=== PATIENT | female | born 1980 | race Two or more races ===

== ENCOUNTER 2017-04-06 16:40 | Emergency (ER) | payer OTHER ==
[~2017-04-06] VITALS: Ht 170.2 cm; Wt 77.1 kg
[2017-04-06 16:53] VITALS: BP 121/71
== END 2017-04-06 17:18 | disposition home or self-care (01) ==
LOC: ER 16:41
DX: M54.9 Dorsalgia, unspecified (principal)
CPT/HCPCS: 99283; A4606; Z7610

== ENCOUNTER 2017-08-15 21:05 | Emergency (ER) | payer OTHER ==
[~2017-08-15] VITALS: Ht 167.6 cm; Wt 83.0 kg
--- NOTE | 2017-08-15 21:20 | NUR ---
TO BED 6 A 36 YO FEMALE PATIENT BIBSELF C/O RIGHT FLANK PAIN X 3 DAYS, WORSE TODAY. HX KIDNEY STONES. PATIENT IS AAOX4, AMBULATORY WITH STEADY GAIT, NAD NOTED. VSS. AFEBRILE. NONDIAPHORETIC. COMFORT MEASURES RENDERED.
[2017-08-15] MEDS ORDERED: KETOROLAC TROMETHAMINE INJ 30 MG/ML VIAL IV ONE (21:30)
[2017-08-15] MEDS ORDERED: IV NS 0.9% 1,000 ML BAG IV ONE (21:30)
--- NOTE | 2017-08-15 21:30 | NUR ---
started a saline lock on the rac g20, blood drawn and sent to lab.
[2017-08-15 21:33] LABS: BASOPHILS % (AUTO) 0.5 % (0.0-2.0); EOSINOPHILS # (AUTO) 0.1 /CMM (0.0-0.7); EOSINOPHILS % (AUTO) 0.8 % (0.0-6.0); HEMATOCRIT 37 % (33-45); HEMOGLOBIN 12.4 g/dL (11.5-14.8); LYMPHOCYTES # (AUTO) 2.4 /CMM (0.8-4.8); MEAN CORPUSCULAR HEMOGLOBIN 30 PG (26.0-33.0); MEAN CORPUSCULAR HGB CONC 34 g/dl (31.0-36.0); MEAN CORPUSCULAR VOLUME 89 fL (82-100); MONOCYTES # (AUTO) 0.4 /CMM (0.1-1.30); MONOCYTES % (AUTO) 4.4 % (2.0-12.0); NEUTROPHILS # (AUTO) 5.3 /CMM (1.8-8.9); NEUTROPHILS % (AUTO) 65.3 % (43.0-81.0); PLATELET COUNT (AUTO) 223 /CMM (150-450); RDW COEFFICIENT OF VARIATION 12.3 (11.5-15.0); RED BLOOD CELL COUNT(AUTO) 4.14 MIL/uL (4.0-5.2); WHITE BLOOD COUNT (AUTO) 8.2 K/uL (4.3-11.0)
[2017-08-15] MEDS ORDERED: KETOROLAC TROMETHAMINE INJ 30 MG/ML VIAL ONE (21:33)
[2017-08-15 21:34] LABS: APPEARANCE,URINE Clear (CLEAR); BILIRUBIN,URINE Negative (NEGATIVE); BLOOD, URINE Negative Ery/uL (NEGATIVE); COLOR,URINE Yellow (YELLOW); KETONES,URINE Negative (NEGATIVE); LEUKOCYTE ESTERASE ,URINE Negative (NEGATIVE); NITRITE, URINE Negative (NEGATIVE); PH,URINE 5.5 (5.0-8.0); PROTEIN,URINE Trace mg/dl (NEGATIVE); UGLUCOSE Negative (NEGATIVE); UROBILINOGEN,URINE 0.2 EU/dL (0.2)
[2017-08-15 21:42] LABS: CALCIUM, SERUM 8.5 mg/dL (8.5-10.1); CREATININE 0.6 mg/dL (0.6-1.3); POTASSIUM 3.6 mmol/L (3.5-5.1)
--- NOTE | 2017-08-15 21:43 | NUR ---
medicated patient as ordered by Dr Danielle.
[2017-08-15 21:52] LABS: BACTERIA,URINE Rare /HPF (None Seen); RBC,URINE NONE SEEN /HPF (0-2); SQUAMOUS EPITHELIAL CELL,UR Few /HPF (None Seen); WBC,URINE NONE SEEN /HPF (0-3)
[2017-08-15 21:54] LABS: BILIRUBIN,DIRECT 0.1 mg/dL (0.0-0.2); BILIRUBIN,TOTAL 0.4 mg/dL (0.2-1.0); TOTAL PROTEIN, SERUM 7.8 g/dL (6.4-8.2)
--- NOTE | 2017-08-15 22:37 | NUR ---
back from ct.
--- NOTE | 2017-08-15 22:48 | NUR ---
Dr Araujo at bedside.
--- NOTE | 2017-08-16 00:54 | NUR ---
IV removed. Catheter intact and site benign. Pressure and 4x4 applied to site. No bleeding noted. Patient discharged to home in stable condition. Written and verbal after care instructions given. Patient verbalizes understanding of instruction. Patient is ambulatory with steady gait, Instructed not to drive. no further complaints.
[2017-08-16 00:55] VITALS: BP 128/74
== END 2017-08-16 00:55 | disposition home or self-care (01) ==
LOC: ER 21:07
DX: N20.0 Calculus of kidney (principal)
CPT/HCPCS: 36415; 80048-TC; 80076-TC; 81000-TC; 83690-TC; 84703-TC; 85025-TC; A4606; J1885; J7030; Z7610

== ENCOUNTER 2018-05-18 21:17 | Emergency (ER) | payer OTHER ==
[~2018-05-18] VITALS: Ht 172.7 cm; Wt 83.9 kg
[2018-05-18 21:20] VITALS: BP 141/89
[2018-05-18] MEDS ORDERED: KETOROLAC TROMETHAMINE INJ 30 MG/ML VIAL ONE (22:21)
[2018-05-18] MEDS ORDERED: ONDANSETRON 4 MG TAB.RAPDIS ONE (22:22)
[2018-05-18] MEDS ORDERED: oxyCODONE/APAP (5/325 MG) 1 UDTAB TABLET ONE (22:22)
[2018-05-18] MEDS ORDERED: ONDANSETRON 4 MG TAB.RAPDIS SL ONE (22:30)
[2018-05-18] MEDS ORDERED: oxyCODONE/APAP (5/325 MG) 1 UDTAB TABLET PO ONE (22:30)
[2018-05-18] MEDS ORDERED: KETOROLAC TROMETHAMINE INJ 60 MG/2 ML VIAL IM ONE (22:30)
== END 2018-05-18 22:30 | disposition home or self-care (01) ==
LOC: ER 21:17
DX: G89.29 Other chronic pain (principal); M54.5 Low back pain; M54.6 Pain in thoracic spine; M54.2 Cervicalgia; Z60.2 Problems related to living alone
CPT/HCPCS: A4606; J1885; Q0162; Z7610

== ENCOUNTER 2021-05-02 11:07 | Emergency (ER) | payer OTHER ==
[~2021-05-02] VITALS: Ht 170.2 cm; Wt 79.4 kg
--- NOTE | 2021-05-02 11:45 | NUR ---
BIBS FROM HOME WITH COMPLAINTS OF BACK SPASMS AND RIGHT/LEFT LEG PAIN X 3 DAYS. PAIN SCALE OF 10/10. A/O X4. STABLE ON ROOM AIR. NO SOB.
--- NOTE | 2021-05-02 11:50 | NUR ---
AT BEDSIDE FOR EVAL
[2021-05-02] MEDS ORDERED: CYCLOBENZAPRINE 10 MG TABLET PO ONE (12:00)
[2021-05-02] MEDS ORDERED: LIDOCAINE 5% (PATCH) 1 EA PATCH TP SCH (12:00)
[2021-05-02] MEDS ORDERED: KETOROLAC TROMETHAMINE INJ 30 MG/ML VIAL IM ONE (12:00)
[2021-05-02] MEDS ORDERED: KETOROLAC TROMETHAMINE 15 MG/ML VIAL ONE (12:06)
[2021-05-02] MEDS ORDERED: CYCLOBENZAPRINE 10 MG TABLET ONE (12:06)
[2021-05-02] MEDS ORDERED: IBUP-1957 PO (12:52)
[2021-05-02] MEDS ORDERED: CYCL5TAB PO (12:52)
--- NOTE | 2021-05-02 13:01 | NUR ---
DISCHARGED PT HOME IN STABLE CONDITION. AMBULATORY. A/O X4. NO SOB OR ANY DISTRESS. PRESCRIPTION AND DISCHARGE INSTRUCTIONS GIVEN TO PT, VERBALIZED UNDERSTANDING.
[2021-05-02 13:03] VITALS: BP 126/91
== END 2021-05-02 13:05 | disposition home or self-care (01) ==
LOC: ER 11:10
DX: M54.42 Lumbago with sciatica, left side (principal); Z60.2 Problems related to living alone; Z79.899 Other long term (current) drug therapy
CPT/HCPCS: 96372; 99283; J1885

== ENCOUNTER 2023-01-17 19:28 | Emergency (ER) | payer OTHER ==
[~2023-01-17] VITALS: Ht 170.2 cm; Wt 74.4 kg
[~2023-01-17 19:28] MED LIST: CYCL5TAB PO; IBUP-1957 PO
--- NOTE | 2023-01-17 20:20 | NUR ---
BIBSELF FROM HOME C/O GEN BODY ACHE +N/V X3 DAYS FEBRILE UPON TRIAGE 103.2 PATIENT IS AAOX4. ABLE TO MAKE NEEDS KNOWN.L PLACED COMFORTABLY IN BED.VITALS CHECKED.
--- NOTE | 2023-01-17 20:22 | NUR ---
URINE COLLECTED AND SENT TO LAB
[2023-01-17] MEDS ORDERED: CEFTRIAXONE 1 G in IV D5W 50 ML IV SCH (20:30)
[2023-01-17] MEDS ORDERED: KETOROLAC TROMETHAMINE INJ 30 MG/ML VIAL IV ONE (20:30)
[2023-01-17] MEDS ORDERED: IV NS 0.9% 1,000 ML BAG IV ONE (20:30)
[2023-01-17] MEDS ORDERED: ONDANSETRON HCL/PF 4 MG/2 ML VIAL IVP ONE (20:30)
[2023-01-17 20:46] LABS: BASOPHILS % (AUTO) 0.1 % (0.0-2.0); HEMATOCRIT 32 % (33-45); HEMOGLOBIN 10.7 g/dL (11.5-14.8); LYMPHOCYTES # (AUTO) 0.3 K/uL (0.8-4.8); LYMPHOCYTES % (AUTO) 3.3 % (20.0-44.0); MEAN CORPUSCULAR HGB CONC 33 g/dl (31.0-36.0); MEAN CORPUSCULAR VOLUME 88 fL (82-100); MONOCYTES # (AUTO) 0.7 K/uL (0.1-1.30); MONOCYTES % (AUTO) 7.5 % (2.0-12.0); NEUTROPHILS # (AUTO) 7.8 K/uL (1.8-8.9); NEUTROPHILS % (AUTO) 89.1 % (43.0-81.0); PLATELET COUNT (AUTO) 161 K/uL (150-450); RED BLOOD CELL COUNT(AUTO) 3.62 MIL/uL (4.0-5.2); WHITE BLOOD COUNT (AUTO) 8.7 K/uL (4.3-11.0)
[2023-01-17 20:53] LABS: BILIRUBIN,URINE NEGATIVE (NEGATIVE); COLOR,URINE YELLOW (YELLOW); LEUKOCYTE ESTERASE ,URINE 2+ (NEGATIVE); NITRITE, URINE POSITIVE (NEGATIVE); PROTEIN,URINE 2+ mg/dl (NEGATIVE); UGLUCOSE NEGATIVE (NEGATIVE); UROBILINOGEN,URINE 0.2 EU/dL (0.2)
[2023-01-17 21:01] LABS: RBC,URINE 21-50 /HPF (0-2); WBC,URINE 21-50 /HPF (0-3)
[2023-01-17 21:02] LABS: BACTERIA,URINE 2+ /HPF (None Seen)
[2023-01-17] MEDS ORDERED: ONDANSETRON HCL/PF 4 MG/2 ML VIAL ONE (21:07)
[2023-01-17] MEDS ORDERED: CEFTRIAXONE 1GM BAG (ER ONLY) 50 ML IV ONE (21:07)
[2023-01-17] MEDS ORDERED: KETOROLAC TROMETHAMINE INJ 30 MG/ML VIAL ONE (21:08)
--- NOTE | 2023-01-17 21:11 | NUR ---
pt taken to CT VIA sruthi
--- NOTE | 2023-01-17 21:15 | NUR ---
COVID AND INFLUENZA SWAB DONE AND SENT TO LAB
--- NOTE | 2023-01-17 21:16 | NUR ---
BROUGHT TO CT DEPT
[2023-01-17 21:29] LABS: CALCIUM, SERUM 9.1 mg/dL (8.5-10.1); CREATININE 0.9 mg/dL (0.6-1.3); POTASSIUM 3.4 mmol/L (3.5-5.1)
--- NOTE | 2023-01-17 21:55 | NUR ---
Lisa olivier in ED - 01/17/23 at 2317 by BERNARDINO ROSE MARIE MONTES [phone]. PLS GIVE UPDATE EVERY SHIFT
[2023-01-17] MEDS ORDERED: NAPR500T6 PO (21:59)
[2023-01-17] MEDS ORDERED: CIPR-262 PO (21:59)
[2023-01-17] MEDS ORDERED: ACETAMINOPHEN 650 MG/20.3 ML UDC PO ONE (22:00)
[2023-01-17] MEDS ORDERED: ACETAMINOPHEN 325 MG TABLET ONE (22:02)
--- NOTE | 2023-01-17 23:44 | NUR ---
Patient discharged to home in stable condition. Written and verbal after care instructions given. Patient verbalizes understanding of instruction. IV removed. Catheter intact and site benign. Pressure and 4x4 applied to site. No bleeding noted. PT ambulatory with a steady gait
--- NOTE | 2023-01-17 23:57 | NUR ---
IV CANNULA REMOVED
[2023-01-17 23:58] VITALS: BP 127/70
--- NOTE | 2023-01-17 23:58 | NUR ---
Patient discharged to home in stable condition. Written and verbal after care instructions given. Patient verbalizes understanding of instruction.
[2023-01-18 00:15] LABS: ALBUMIN 3.3 g/dL (3.4-5.0); BILIRUBIN,DIRECT 0.2 mg/dL (0.0-0.2); BILIRUBIN,TOTAL 0.4 mg/dL (0.2-1.0)
== END 2023-01-17 23:59 | disposition home or self-care (01) ==
LOC: ER 19:29
DX: N12 Tubulo-interstitial nephritis, not specified as acute or chronic (principal); N20.0 Calculus of kidney; Z98.890 Other specified postprocedural states; Z79.899 Other long term (current) drug therapy; Z20.822 Contact with and (suspected) exposure to COVID-19
CPT/HCPCS: 99285; 74176; 96365; 96375; 87426; 87804 ×2; 85025; 80048; 87086; 83690; 80076; 84703; 81001; 36415; J0696 ×2; J1885; J2405; J7060; J7030; C9803

== ENCOUNTER 2023-05-07 23:39 | Emergency (ER) | payer OTHER ==
[~2023-05-07] VITALS: Ht 167.6 cm; Wt 72.6 kg
[~2023-05-07 23:39] MED LIST changes: +CIPR-262 PO; +NAPR500T6 PO
[2023-05-07] MEDS ORDERED: ONDANSETRON HCL/PF 4 MG/2 ML VIAL ONE (23:59)
[2023-05-07] MEDS ORDERED: MORPHINE SULFATE INJ 2 MG/ML DISP.SYRIN ONE (23:59)
[2023-05-08] MEDS ORDERED: ONDANSETRON HCL/PF 4 MG/2 ML VIAL IVP ONE
[2023-05-08] MEDS ORDERED: IV NS 0.9% 1,000 ML BAG IV ONE
[2023-05-08] MEDS ORDERED: MORPHINE SULFATE INJ 2 MG/ML DISP.SYRIN IV ONE
--- NOTE | 2023-05-08 | NUR ---
BIBSELF C/O SOB +N/+V . PATIENT IS AOX4. ABLE TO MAKE NEEDS KNOWN. VOMITED AT ER. PLACED COMFORTABLY IN BED. VITALS CHECKED.
--- NOTE | 2023-05-08 00:09 | NUR ---
IV SHERITA G18 INSERTED ON RIGHT AC. BLOOD DRAWN AND SENT TO LAB
[2023-05-08 01:04] LABS: BASOPHILS % (AUTO) 0.2 % (0.0-2.0); EOSINOPHILS % (AUTO) 1.3 % (0.0-6.0); HEMATOCRIT 36 % (33-45); HEMOGLOBIN 12.1 g/dL (11.5-14.8); MEAN CORPUSCULAR HGB CONC 34 g/dl (31.0-36.0); MEAN CORPUSCULAR VOLUME 88 fL (82-100); MONOCYTES # (AUTO) 0.5 K/uL (0.1-1.30); MONOCYTES % (AUTO) 6.4 % (2.0-12.0); NEUTROPHILS # (AUTO) 6.1 K/uL (1.8-8.9); NEUTROPHILS % (AUTO) 79.1 % (43.0-81.0); PLATELET COUNT (AUTO) 188 K/uL (150-450); RED BLOOD CELL COUNT(AUTO) 4.12 MIL/uL (4.0-5.2); WHITE BLOOD COUNT (AUTO) 7.7 K/uL (4.3-11.0)
[2023-05-08 01:09] LABS: CALCIUM, SERUM 9.4 mg/dL (8.5-10.1); CARBON DIOXIDE 27 mmol/L (21-32); CHLORIDE 98 mmol/L (98-107); CREATININE 0.8 mg/dL (0.6-1.3); GLUCOSE 134 mg/dL (74-106); POTASSIUM 3.7 mmol/L (3.5-5.1); SODIUM SERUM 136 mmol/L (136-145); UREA NITROGEN, BLOOD 21 mg/dL (7-18)
[2023-05-08 02:10] LABS: BILIRUBIN,URINE NEGATIVE (NEGATIVE); COLOR,URINE YELLOW (YELLOW); LEUKOCYTE ESTERASE ,URINE NEGATIVE (NEGATIVE); NITRITE, URINE NEGATIVE (NEGATIVE); PROTEIN,URINE 1+ mg/dl (NEGATIVE); UGLUCOSE NEGATIVE (NEGATIVE); UROBILINOGEN,URINE 0.2 EU/dL (0.2)
[2023-05-08 02:24] LABS: BACTERIA,URINE Few /HPF (None Seen); MUCUS,URINE Few /LPF (None Seen); WBC,URINE 0-2 /HPF (0-3)
[2023-05-08 02:27] LABS: ALANINE AMINOTRANSFERASE 15 U/L (12-78); ALBUMIN 3.7 g/dL (3.4-5.0); ALKALINE PHOSPHATASE 85 U/L (46-116); ASPARTATE AMINOTRANSFERASE 11 U/L (15-37); BILIRUBIN,TOTAL 0.4 mg/dL (0.2-1.0); LIPASE 71 U/L (73-393); TOTAL PROTEIN, SERUM 8.5 g/dL (6.4-8.2)
[2023-05-08 03:08] LABS: BILIRUBIN,DIRECT 0.1 mg/dL (0.0-0.2)
[2023-05-08] MEDS ORDERED: PANT40TA2 PO (03:53)
--- NOTE | 2023-05-08 04:13 | NUR ---
IV SHERITA REMOVED
[2023-05-08 04:14] VITALS: BP 122/71; TEMP 98.3
== END 2023-05-08 04:15 | disposition home or self-care (01) ==
LOC: ER 23:40
DX: N20.0 Calculus of kidney (principal); K21.9 Gastro-esophageal reflux disease without esophagitis; Z60.2 Problems related to living alone; Z79.899 Other long term (current) drug therapy
CPT/HCPCS: 99285; 74176; 71045; 93005; 36415; 96374; 96375; 85025; 80048; 83690; 80076; 85378; 84703; 81001; 84484 ×2; 85730; J2405; J2270; J7030